=== PATIENT | female | born 1955 | race Caucasian/White ===

== ENCOUNTER 2017-11-20 11:03 | Emergency (ER) | payer MEDICAID ==
[~2017-11-20] VITALS: Ht 165.1 cm; Wt 90.0 kg
[~2017-11-20 11:03] MED LIST: MULT-933 PO
[2017-11-20 11:11] VITALS: BP 121/73
[2017-11-20] MEDS ORDERED: HYDR-3965 PO (12:24)
[2017-11-20] MEDS ORDERED: ONDA8TAB9 PO (12:24)
[2017-11-20] MEDS ORDERED: HYDROcodone/acetaminophen 5mg/325mg tablet PO ONE (12:25)
[2017-11-20] MEDS ORDERED: ondansetron 4mg rapidly disintigrating tab PO ONE (12:25)
== END 2017-11-20 12:57 | disposition home or self-care (01) ==
LOC: ER 11:03
DX: M25.562 Pain in left knee (principal); Z90.710 Acquired absence of both cervix and uterus; Z88.2 Allergy status to sulfonamides; Z88.6 Allergy status to analgesic agent; Z88.8 Allergy status to other drugs, medicaments and biological substances; Z79.899 Other long term (current) drug therapy; W19.XXXA Unspecified fall, initial encounter; Y93.02 Activity, running; Y92.410 Unspecified street and highway as the place of occurrence of the external cause; Y99.9 Unspecified external cause status
CPT/HCPCS: 73564; 99284

== ENCOUNTER 2017-12-04 13:07 | Outpatient (CLI) | payer MEDICAID ==
[~2017-12-04 13:07] MED LIST changes: +HYDR-3965 PO; +ONDA8TAB9 PO
[2017-12-04 13:08] VITALS: BP 162/83
== END 2017-12-04 13:56 | disposition home or self-care (01) ==
LOC: ORTHO 13:07
PROVIDERS: ATTEND Nurse Practitioner Family
DX: S83.512A Sprain of anterior cruciate ligament of left knee, initial encounter (principal); S83.412A Sprain of medial collateral ligament of left knee, initial encounter; Z88.2 Allergy status to sulfonamides; X58.XXXA Exposure to other specified factors, initial encounter; Y93.89 Activity, other specified; Y92.89 Other specified places as the place of occurrence of the external cause; Y99.8 Other external cause status
CPT/HCPCS: 99213

== ENCOUNTER 2017-12-25 08:27 | Outpatient (CLI) | payer MEDICAID ==
[~2017-12-25 08:27] MED LIST changes: -HYDR-3965 PO
== END 2017-12-25 23:59 | disposition home or self-care (01) ==
LOC: RAD 08:27
PROVIDERS: ATTEND Nurse Practitioner Family
DX: M25.562 Pain in left knee (principal)
CPT/HCPCS: 73718

== ENCOUNTER 2017-12-30 09:51 | Outpatient (CLI) | payer MEDICAID | END 2017-12-30 10:45 | disposition home or self-care (01) | LOC: ORTHO 09:51 | PROVIDERS: ATTEND Nurse Practitioner Family | DX: S83.412D Sprain of medial collateral ligament of left knee, subsequent encounter (principal); S89.92XD Unspecified injury of left lower leg, subsequent encounter; S83.512D Sprain of anterior cruciate ligament of left knee, subsequent encounter; I10 Essential (primary) hypertension; J45.909 Unspecified asthma, uncomplicated; Z88.2 Allergy status to sulfonamides; W18.39XD Other fall on same level, subsequent encounter | CPT/HCPCS: 99213 ==

== ENCOUNTER 2018-03-02 10:09 | Outpatient (CLI) | payer MEDICAID ==
[2018-03-02 10:12] VITALS: BP 167/95
== END 2018-03-02 10:44 | disposition home or self-care (01) ==
LOC: ORTHO 10:09
PROVIDERS: ATTEND Nurse Practitioner Family
DX: S82.142D Displaced bicondylar fracture of left tibia, subsequent encounter for closed fracture with routine healing (principal); S89.92XD Unspecified injury of left lower leg, subsequent encounter; I10 Essential (primary) hypertension; J45.909 Unspecified asthma, uncomplicated; Z88.2 Allergy status to sulfonamides; Z88.6 Allergy status to analgesic agent; X58.XXXD Exposure to other specified factors, subsequent encounter
CPT/HCPCS: 73564; 99213

== ENCOUNTER 2018-03-22 10:16 | Outpatient (CLI) | payer MEDICAID ==
[2018-03-22 10:15] VITALS: BP 140/80
== END 2018-03-22 10:48 | disposition home or self-care (01) ==
LOC: ORTHO 10:16
PROVIDERS: ATTEND Nurse Practitioner Family
DX: M25.462 Effusion, left knee (principal); M25.572 Pain in left ankle and joints of left foot; I10 Essential (primary) hypertension; J45.909 Unspecified asthma, uncomplicated; Z88.2 Allergy status to sulfonamides; Z88.6 Allergy status to analgesic agent
CPT/HCPCS: 73562; 73600; 99213

== ENCOUNTER 2018-04-19 11:17 | Outpatient (CLI) | payer MEDICAID ==
[2018-04-19 11:09] VITALS: BP 158/85
== END 2018-04-19 11:43 | disposition home or self-care (01) ==
LOC: ORTHO 11:17
PROVIDERS: ATTEND Nurse Practitioner Family
DX: S82.142D Displaced bicondylar fracture of left tibia, subsequent encounter for closed fracture with routine healing (principal); S89.92XD Unspecified injury of left lower leg, subsequent encounter; I10 Essential (primary) hypertension; Z98.890 Other specified postprocedural states; Z88.2 Allergy status to sulfonamides; Z88.6 Allergy status to analgesic agent; X58.XXXD Exposure to other specified factors, subsequent encounter
CPT/HCPCS: 73562; 99213